=== PATIENT | male | born 2000 | race Hispanic/Latino ===

== ENCOUNTER 2019-09-09 23:18 | Emergency (ER) | payer MEDICAID, OTHER ==
[2019-09-10 01:23] LABS: RAPID GROUP A STREP NEGATIVE (NEGATIVE)
== END 2019-09-10 01:53 | disposition home or self-care (01) ==
LOC: EDH 23:18
DX: J01.00 Acute maxillary sinusitis, unspecified (principal); R05 Cough; R50.81 Fever presenting with conditions classified elsewhere
CPT/HCPCS: 87804; 87880